=== PATIENT | female | born 1955 | race Caucasian/White ===

== ENCOUNTER → 2019-04-29 | Outpatient (CLI) | payer MEDICARE, OTHER ==
[~2019-04-29] VITALS: Ht 172.7 cm; Wt 52.0 kg
[~2019-04-29] MED LIST: ASPI81 PO; BACL10TA PO; DICY20 PO; DRON400T PO; DSS100 PO; FAMO20 PO; HYDR-3965 PO; LORA1TAB3 PO; OMEP20 PO; RIVA20TA PO
[2019-04-29 11:16] VITALS: BP 96/61
== END | disposition home or self-care (01) ==
LOC: HBOWC 09:35
PROVIDERS: ATTEND Surgery Plastic and Reconstructive Surgery
DX: S31.502A Unspecified open wound of unspecified external genital organs, female, initial encounter (principal); X58.XXXA Exposure to other specified factors, initial encounter; Y93.89 Activity, other specified; Y92.89 Other specified places as the place of occurrence of the external cause; Y99.8 Other external cause status

== ENCOUNTER → 2019-05-20 | Outpatient (CLI) | payer MEDICARE, OTHER ==
[~2019-05-20] MED LIST changes: -DICY20 PO; -HYDR-3965 PO; -OMEP20 PO; -RIVA20TA PO
[2019-05-20 11:41] VITALS: BP 100/61
== END | disposition home or self-care (01) ==
LOC: HBOWC 09:55
PROVIDERS: ATTEND Surgery Plastic and Reconstructive Surgery
DX: T81.89XD Other complications of procedures, not elsewhere classified, subsequent encounter (principal); S31.502D Unspecified open wound of unspecified external genital organs, female, subsequent encounter; G82.50 Quadriplegia, unspecified; X58.XXXD Exposure to other specified factors, subsequent encounter; Y83.8 Other surgical procedures as the cause of abnormal reaction of the patient, or of later complication, without mention of misadventure at the time of the procedure
CPT/HCPCS: 11042

== ENCOUNTER → 2019-06-03 | Outpatient (CLI) | payer MEDICARE, OTHER ==
[2019-06-03 11:49] VITALS: BP 152/92
== END | disposition home or self-care (01) ==
LOC: HBOWC 10:24
PROVIDERS: ATTEND Surgery Plastic and Reconstructive Surgery
DX: T81.89XD Other complications of procedures, not elsewhere classified, subsequent encounter (principal); S31.502D Unspecified open wound of unspecified external genital organs, female, subsequent encounter; G82.50 Quadriplegia, unspecified; X58.XXXD Exposure to other specified factors, subsequent encounter; Y83.8 Other surgical procedures as the cause of abnormal reaction of the patient, or of later complication, without mention of misadventure at the time of the procedure
CPT/HCPCS: 11043

== ENCOUNTER → 2019-06-17 | Outpatient (CLI) | payer MEDICARE, OTHER ==
[~2019-06-17] MED LIST changes: +LIDOCAINE 2% 5 ML JELLY TP ONE
[2019-06-17 11:49] VITALS: BP 96/53
== END | disposition home or self-care (01) ==
LOC: HBOWC 10:23
PROVIDERS: ATTEND Surgery Plastic and Reconstructive Surgery
DX: T81.89XD Other complications of procedures, not elsewhere classified, subsequent encounter (principal); G82.50 Quadriplegia, unspecified; Y83.8 Other surgical procedures as the cause of abnormal reaction of the patient, or of later complication, without mention of misadventure at the time of the procedure
CPT/HCPCS: 11044

== ENCOUNTER → 2019-07-10 | Outpatient (CLI) | payer MEDICARE, OTHER ==
[~2019-07-10] MED LIST changes: +LORA-1000 PO; -LORA1TAB3 PO
[2019-07-10 12:15] VITALS: BP 90/60
== END | disposition home or self-care (01) ==
LOC: HBOWC 10:27
PROVIDERS: ATTEND Internal Medicine
DX: T81.89XD Other complications of procedures, not elsewhere classified, subsequent encounter (principal); G82.50 Quadriplegia, unspecified; Y83.8 Other surgical procedures as the cause of abnormal reaction of the patient, or of later complication, without mention of misadventure at the time of the procedure
CPT/HCPCS: 11042

== ENCOUNTER → 2019-07-29 | Outpatient (CLI) | payer MEDICARE, OTHER ==
[~2019-07-29] MED LIST changes: -LIDOCAINE 2% 5 ML JELLY TP ONE; +LIDOCAINE 4% 50 ML SOLUTION ONE
== END | disposition home or self-care (01) ==
LOC: HBOWC 09:40
PROVIDERS: ATTEND Surgery Plastic and Reconstructive Surgery
DX: L89.324 Pressure ulcer of left buttock, stage 4 (principal); G82.50 Quadriplegia, unspecified; Z86.711 Personal history of pulmonary embolism
CPT/HCPCS: 11044

== ENCOUNTER → 2019-08-19 | Outpatient (CLI) | payer MEDICARE, OTHER ==
[~2019-08-19] MED LIST changes: +LIDOCAINE 2% 5 ML JELLY TP ONE; -LIDOCAINE 4% 50 ML SOLUTION ONE
== END | disposition home or self-care (01) ==
LOC: HBOWC 09:46
PROVIDERS: ATTEND Surgery Plastic and Reconstructive Surgery
DX: L89.324 Pressure ulcer of left buttock, stage 4 (principal); G82.50 Quadriplegia, unspecified; R26.9 Unspecified abnormalities of gait and mobility; Z86.711 Personal history of pulmonary embolism
CPT/HCPCS: 11044; 87070

== ENCOUNTER → 2019-09-09 | Outpatient (CLI) | payer MEDICARE, OTHER ==
[~2019-09-09] MED LIST changes: -LIDOCAINE 2% 5 ML JELLY TP ONE
== END | disposition home or self-care (01) ==
LOC: HBOWC 09:15
PROVIDERS: ATTEND Surgery Plastic and Reconstructive Surgery
DX: L89.324 Pressure ulcer of left buttock, stage 4 (principal); G82.50 Quadriplegia, unspecified; R26.9 Unspecified abnormalities of gait and mobility; Z86.711 Personal history of pulmonary embolism
CPT/HCPCS: 11044